=== PATIENT | female | born 2000 | race Two or more races ===

== ENCOUNTER 2019-06-14 15:20 | Observation (INO) | payer MEDICAID, OTHER ==
[2019-06-14] MEDS ORDERED: PREN27TA7 OR (17:09)
== END 2019-06-14 17:09 | disposition home or self-care (01) | DRG 566 ==
LOC: LDRP 15:20
PROVIDERS: ADMIT Specialist; ATTEND Specialist
DX: O26.893 Other specified pregnancy related conditions, third trimester (principal); R10.30 Lower abdominal pain, unspecified; Z3A.34 34 weeks gestation of pregnancy
CPT/HCPCS: 59025; 81002; G0378

== ENCOUNTER 2019-06-28 16:10 | Observation (INO) | payer MEDICAID ==
[~2019-06-28 16:10] MED LIST: PREN27TA7 OR
--- NOTE | 2019-06-28 18:34 | NUR ---
Strip reviewed with Dr. Frias, waiting for ultrasound results.
--- NOTE | 2019-06-28 19:09 | NUR ---
0 Results from Ultrasound reviewed/reported to Dr. Frias. Order from Dr. Frias to DC pt. with pre-term labor precautions and Kick counts, discussed unusual bleeding, cramping abdominal pain and all other antepartum DC instructions. Pt. given both in writting, and verbally, pt. verbalizes understanding.
== END 2019-06-28 19:57 | disposition home or self-care (01) | DRG 815 ==
LOC: LDRP 16:10
PROVIDERS: ADMIT Obstetrics & Gynecology; ATTEND Obstetrics & Gynecology
DX: Z04.3 Encounter for examination and observation following other accident (principal); O26.893 Other specified pregnancy related conditions, third trimester; R10.9 Unspecified abdominal pain; R51 Headache; S20.311A Abrasion of right front wall of thorax, initial encounter; X58.XXXA Exposure to other specified factors, initial encounter; Y93.89 Activity, other specified; Y92.410 Unspecified street and highway as the place of occurrence of the external cause; Y99.8 Other external cause status; Z3A.36 36 weeks gestation of pregnancy
CPT/HCPCS: 59025; 76818; 81002; G0378

== ENCOUNTER 2019-07-18 00:25 | Inpatient (IN) | payer MEDICAID ==
[~2019-07-18] VITALS: Ht 154.9 cm; Wt 71.7 kg
[2019-07-18] MEDS ORDERED: LACT. RINGERS/OXYTOCIN 20UNITS 1,000 ML IV SCH (00:53)
[2019-07-18] MEDS ORDERED: METHYLERGONOVINE MALEATE 0.2 MG/ML AMP IM PRN (01:00)
[2019-07-18] MEDS ORDERED: WITCH HAZEL-GLYCERIN PAD TOP PRN (01:00)
[2019-07-18] MEDS ORDERED: PHISODERM TOP SOLN 240ML BTL TOP PRN (01:00)
[2019-07-18] MEDS ORDERED: LIDOCAINE 2%HCL (LOCAL ANESTH.) INJ 20ML MDV ID PRN (01:00)
[2019-07-18] MEDS ORDERED: DERMOPLAST 60ML BOTTLE TOP PRN (01:00)
[2019-07-18 02:05] LABS: Basophils # (auto) 0.1 uL; Basophils % (auto) 0.7 % (0.0-2.0); Eosinophils # (auto) 0.2 uL; Eosinophils % (auto) 1.8 % (0.0-7.0); Hematocrit 36.8 % (36.0-46.0); Hemoglobin 13.1 g/dL (12.2-16.2); Lymphocytes # (auto) 3.3 uL; Lymphocytes % (auto) 33.1 % (10.0-50.0); Mean Corpuscular Hemoglobin 32.2 pg (28.0-32.0); Mean Corpuscular Hgb Conc. 35.5 g/dL (32.0-36.0); Mean Corpuscular Volume 90.9 fL (80.0-100.0); Monocytes # (auto) 0.6 uL; Monocytes % (auto) 6.6 % (0.0-12.0); Neutrophils # (auto) 5.7 uL; Neutrophils % (auto) 57.8 % (37.0-80.0); Nucleated Red Blood Cells % 0.2 %; Platelet Count (auto) 227 10^3/uL (140-450); Red Blood Cells 4.05 10^6/uL (4.0-5.20); Red Cell Distribution Width 13.1 % (11.8-14.3); White Blood Cell 9.9 10^3/uL (4.4-10.8)
[2019-07-18 02:18] LABS: Urine Bacteria FEW /hpf (None Seen); Urine Blood 2+ /uL (Negative); Urine Mucus FEW (None Seen); Urine Specific Gravity 1.012 (1.001-1.035); Urine WBC 36 /hpf (0 - 5)
[2019-07-18 02:20] LABS: Albumin 2.6 g/dL (3.4-5.0); Calcium 8.5 mg/dL (8.5-10.1); INR < 0.93 (0.9-1.15); Partial Thromboplastin Time 26.5 sec (23.64-32.05); Potassium 3.9 mmol/L (3.5-5.1)
[2019-07-18 02:21] LABS: Alcohol, Urine < 3.0 mg/dL (0-5); Amphetamine Screen, Urine NEGATIVE (NEGATIVE); Barbiturate Scree,Urine NEGATIVE (NEGATIVE); Benzodiazephine Screen, Urine NEGATIVE (NEGATIVE); Cannabinoid Screen, Urine NEGATIVE (NEGATIVE); Cocaine Screen, Urine NEGATIVE (NEGATIVE); Opiate Scree,Urine NEGATIVE (NEGATIVE); Phencyclidine Screen, Urine NEGATIVE (NEGATIVE)
[2019-07-18 02:23] LABS: BUN/Creatinine Ratio 10.1
[2019-07-18 02:26] LABS: Bilirubin, Total 0.4 mg/dL (0.2-1.0); Total Protein 6.7 g/dL (6.4-8.2)
[2019-07-18] MEDS: LACTATED RINGER'S 1,000 ML IV SCH ×3 (02:47→10:17)
[2019-07-18] MEDS ORDERED: TERBUTALINE SULFATE 1 MG/ML 1ML VIAL SC ONE (05:15)
[2019-07-18] MEDS ORDERED: LACTATED RINGER'S 1,000 ML IV ONE (11:24)
[2019-07-18] MEDS ORDERED: fentaNYL CITRATE 100 MCG/2 ML VL IV ONE (11:30)
[2019-07-18] MEDS ORDERED: ePHEDrine SULFATE 50 MG/ML AMP IV ONE ×2 (11:30→12:45)
[2019-07-18] MEDS ORDERED: fentaNYL W ROPIVACAINE 150 ML EPI SCH ×2 (11:30→12:45)
[2019-07-18] MEDS ORDERED: LIDOCAINE HCL 2 %PF INJ 10ML AMP IJ ONE (11:30)
[2019-07-18] MEDS ORDERED: SODIUM CHLORIDE 0.9% 500 ML IV PRN (12:43)
[2019-07-18] MEDS ORDERED: NALOXONE HCL 0.4 MG/ML VIAL IV ONE (12:45)
[2019-07-18] MEDS: ceFAZolin 1GM/50ML 50 ML IV SCH ×2 (15:27→22:38)
[2019-07-18] MEDS ORDERED: LACT. RINGERS/OXYTOCIN 20UNITS 500 ML IV ONE (20:42)
[2019-07-18] MEDS ORDERED: ACETAMINOPHEN 325 MG TAB PO PRN (20:45)
[2019-07-18] MEDS ORDERED: ONDANSETRON HCL 4 MG/2 ML VIAL IV PRN (20:45)
[2019-07-18] MEDS: IBUPROFEN 600 MG TAB PO PRN (21:12)
--- NOTE | 2019-07-18 22:30 | NUR ---
Ambulation: Patient OOB with standby assistance by RN. Patient ambulated to bathroom with steady gait. Patient able to void without difficulty 200 ml. Pericare teaching provided with returned demonstration by patient. Clean gown provided and bed linen changed. Patient ambulated back to bed with steady gait and no distress noted.
[2019-07-18 23:20] VITALS: BP 100/57
[2019-07-19] MEDS: IBUPROFEN 600 MG TAB PO PRN ×3 (01:00→18:34)
[2019-07-19 03:00] VITALS: BP 90/52
[2019-07-19] MEDS: ceFAZolin 1GM/50ML 50 ML IV SCH ×2 (05:39→13:45)
--- NOTE | 2019-07-19 06:06 | NUR ---
Report received from Katie Gandhi RN on stable pt. Assumed care. Addendum: 07/19/19 at 0621 by Yesenia Sandoval RN Amended: Links added.
[2019-07-19 06:59] VITALS: BP 99/53
[2019-07-19] MEDS ORDERED: DOCUSATE CALCIUM 240 MG CAP PO SCH (10:00)
[2019-07-19 11:34] VITALS: BP 108/67
[2019-07-19 13:14] LABS: RPR Non Reactive (Non Reactive)
[2019-07-19 15:14] VITALS: BP 105/58
--- NOTE | 2019-07-19 15:15 | NUR ---
IV removal 20 G IV DC'd from left hand with sterile technique, catheter fully intact. Pressure dressing applied to site. Patient tolerated procedure well. Addendum: 07/19/19 at 1517 by Yesenia Sandoval RN Amended: Links added.
--- NOTE | 2019-07-19 18:05 | NUR ---
Report given to Vinicius Barraza RN on stable pt. Relinquished care. Addendum: 07/19/19 at 1808 by Yesenia Sandoval RN Amended: Links added.
[2019-07-19 18:30] VITALS: BP 102/60
--- NOTE | 2019-07-19 20:15 | NUR ---
Discharge: Discharge instructions given as ordered. Pt encouraged to follow up with Dr. Frias at [facility] as instructed. All questions and concerns addressed. Patient verbalized understanding. Medication reconciliation completed and copy given to patient. Patient encouraged to prepare to depart unit.
[2019-07-19 20:50] VITALS: BP 102/60
--- NOTE | 2019-07-19 20:50 | NUR ---
Discharge: Patient taken to vehicle via ambulation per patient request with all personal belongings, accompanied by staff and family member. No distress noted at time of departure, no adverse changes in status since initial assessment.
== END 2019-07-19 20:50 | disposition home or self-care (01) | DRG 560 ==
LOC: OBSVTOIN 00:25 → LDRP 00:25
PROVIDERS: ADMIT Obstetrics & Gynecology; ATTEND Obstetrics & Gynecology
PROC: 10H07YZ Insertion of Other Device into Products of Conception, Via Natural or Artificial Opening (ICD-10-PCS; principal; 2019-07-18)
PROC: 10D07Z6 Extraction of Products of Conception, Vacuum, Via Natural or Artificial Opening (ICD-10-PCS; 2019-07-18)
PROC: 0W8NXZZ Division of Female Perineum, External Approach (ICD-10-PCS; 2019-07-18)
PROC: 0KQM0ZZ Repair Perineum Muscle, Open Approach (ICD-10-PCS; 2019-07-18)
PROC: 3E0R3BZ Introduction of Anesthetic Agent into Spinal Canal, Percutaneous Approach (ICD-10-PCS; 2019-07-18)
PROC: 00HU33Z Insertion of Infusion Device into Spinal Canal, Percutaneous Approach (ICD-10-PCS; 2019-07-18)
DX: O69.81X0 Labor and delivery complicated by cord around neck, without compression, not applicable or unspecified (principal); O70.1 Second degree perineal laceration during delivery; O76 Abnormality in fetal heart rate and rhythm complicating labor and delivery; Z37.0 Single live birth; Z3A.39 39 weeks gestation of pregnancy
CPT/HCPCS: 36415; 51702; 59025; 59409; 62282; 80053; 80307; 81001; 84112; 85025; 85610; 85730; 86592; 86850; 86900; 86901; 96361; 96365; 96366; 96372; G0378; J0690; J2590; J3010

== ENCOUNTER 2020-06-03 13:23 | Emergency (ER) | payer MEDICAID ==
[~2020-06-03] VITALS: Ht 154.9 cm; Wt 68.0 kg
[2020-06-03 15:37] LABS: Basophils # (auto) 0.1 10 ^3/uL (0-0.2); Basophils % (auto) 0.6 % (0.0-2.0); Eosinophils # (auto) 0 10 ^3/uL (0-0.8); Eosinophils % (auto) 0.5 % (0.0-7.0); Hematocrit 40.9 % (36.0-46.0); Hemoglobin 13.6 g/dL (12.2-16.2); Lymphocytes # (auto) 2.2 10 ^3/uL (0.4-5.4); Mean Corpuscular Hemoglobin 30.9 pg (28.0-32.0); Mean Corpuscular Hgb Conc. 33.4 g/dL (32.0-36.0); Mean Corpuscular Volume 92.6 fL (80.0-100.0); Monocytes # (auto) 0.5 10 ^3/uL (0-1.3); Monocytes % (auto) 5.4 % (0.0-12.0); Neutrophils # (auto) 7.1 10 ^3/uL (1.6-8.6); Neutrophils % (auto) 71.5 % (37.0-80.0); Nucleated Red Blood Cells % 0.1 %; Platelet Count (auto) 260 10^3/uL (140-450); Red Blood Cells 4.41 10^6/uL (4.0-5.20); Red Cell Distribution Width 13.5 % (11.8-14.3); White Blood Cell 9.9 10^3/uL (4.4-10.8)
[2020-06-03 17:03] VITALS: BP 94/55
== END 2020-06-03 17:04 | disposition home or self-care (01) ==
LOC: ER 13:23
DX: O26.892 Other specified pregnancy related conditions, second trimester (principal); M54.5 Low back pain; R10.9 Unspecified abdominal pain; Z3A.15 15 weeks gestation of pregnancy
CPT/HCPCS: 36415; 76805; 84702; 85025